=== PATIENT | male | born 1965 | race Two or more races ===

== ENCOUNTER 2017-03-12 06:36 | Day surgery (SDC) | payer OTHER | END 2017-03-12 14:15 | disposition home or self-care (01) | LOC: AMB-ENDOS 06:36 | DX: K57.32 Diverticulitis of large intestine without perforation or abscess without bleeding (principal); K64.1 Second degree hemorrhoids; G47.33 Obstructive sleep apnea (adult) (pediatric); R73.01 Impaired fasting glucose ==

== ENCOUNTER 2019-01-22 02:48 | Emergency (ER) | payer OTHER ==
[~2019-01-22] VITALS: Ht 177.8 cm; Wt 97.5 kg
[2019-01-22] MEDS ORDERED: MUCINEX100 MG PO (06:22)
[2019-01-22] MEDS ORDERED: NASAL MIST126 ML NASAL (06:34)
[2019-01-22] MEDS ORDERED: ZITHROMAX500 MG PO (06:34)
== END 2019-01-22 06:27 | disposition home or self-care (01) ==
LOC: ER 02:48
DX: R10.11 Right upper quadrant pain (principal)

== ENCOUNTER 2020-03-17 18:27 | Emergency (ER) | payer OTHER ==
[~2020-03-17] VITALS: Ht 182.9 cm; Wt 88.5 kg
[~2020-03-17 18:27] MED LIST: MUCINEX100 MG PO; NASAL MIST126 ML NASAL; ZITHROMAX500 MG PO
[2020-03-18] MEDS ORDERED: LEVSIN/SL0.125 MG SL (03:10)
[2020-03-18] MEDS ORDERED: PEPCID40 MG PO (03:10)
[2020-03-18] MEDS ORDERED: ZOFRAN8 MG PO (03:10)
== END 2020-03-18 03:17 ==
LOC: ER 18:27
DX: R10.31 Right lower quadrant pain (principal); Z20.822 Contact with and (suspected) exposure to COVID-19

== ENCOUNTER 2024-02-05 01:13 | Emergency (ER) | payer OTHER ==
[~2024-02-05] VITALS: Ht 180.3 cm; Wt 98.4 kg
[~2024-02-05 01:13] MED LIST changes: +LEVSIN/SL0.125 MG SL; +PEPCID40 MG PO; +ZOFRAN8 MG PO
[2024-02-05] MEDS ORDERED: GLUMETZA500 MG (01:41)
[2024-02-05] MEDS ORDERED: XELPROS2.5 ML OP (01:42)
[2024-02-05] MEDS ORDERED: MEPERIDINE HCL/PF 50 MG/ML VIAL IM STA (03:33)
[2024-02-05] MEDS ORDERED: PROMETHAZINE HCL 25 MG/ML AMPUL IM STA (03:34)
[2024-02-05] MEDS ORDERED: 0.9 % SODIUM CHLORIDE 1,000 ML IV STA (03:35)
[2024-02-05] MEDS ORDERED: HYOSCYAMINE SULFATE 0.125 MG TAB.SUBL SL ONE (03:45)
[2024-02-05 04:22] LABS: HEMATOCRIT 46.9 % (39.0-48.0); HEMOGLOBIN 16.1 g/dL (13-16.00); MEAN CELL VOLUME 84.9 fL (80.0-100.00); MEAN CORPUSCULAR HEMOGLOBIN 29.1 pg (27.00-32.0); MEAN CORPUSCULAR HGB CONC 34.2 g/dl (32.0-36.0); PLATELET COUNT 222 K/uL (150-450); RED BLOOD COUNT 5.52 M/uL (4.00-6.00); RED CELL DISTRIBUTION WIDTH 14.1 % (11.5-14.5)
[2024-02-05 06:42] LABS: INR 0.96; PARTIAL THROMBOPLASTIN TIME 28.2 SECONDS (22.0-34.0); PROTHROMBIN TIME 10.5 SECONDS (9.0-11.5)
[2024-02-05 06:46] LABS: ALBUMIN 3.5 gm/dL (3.4-5.0); BILIRUBIN TOTAL 0.31 mg/dL (0.3-1.2); CALCIUM 8.8 mg/dL (8.5-10.1); CREATININE SERUM 1.11 mg/dL (0.70-1.30); GFR 68.53; POTASSIUM 4.31 mEq/L (3.5-5.1); TOTAL PROTEIN 7.5 gm/dL (6.4-8.2)
== END 2024-02-05 07:16 | disposition home or self-care (01) ==
LOC: ER 01:15
DX: K59.01 Slow transit constipation (principal); R10.9 Unspecified abdominal pain; E11.9 Type 2 diabetes mellitus without complications; Z79.84 Long term (current) use of oral hypoglycemic drugs